=== PATIENT | female | born 1960 | race Asian ===

== ENCOUNTER → 2018-04-13 | Outpatient (CLI) | payer OTHER | LOC: RAD 01:47 | DX: Z12.31 Encounter for screening mammogram for malignant neoplasm of breast (principal) ==

== ENCOUNTER → 2019-04-19 | Outpatient (CLI) | payer BC, OTHER | LOC: RAD 08:39 | DX: Z12.31 Encounter for screening mammogram for malignant neoplasm of breast (principal) ==

== ENCOUNTER → 2019-06-09 | Outpatient (CLI) | payer BC, OTHER | LOC: NUC 06-02 13:25 | DX: M81.0 Age-related osteoporosis without current pathological fracture (principal); N91.2 Amenorrhea, unspecified; Z78.0 Asymptomatic menopausal state ==

== ENCOUNTER → 2020-04-24 | Outpatient (CLI) | payer BC, OTHER | LOC: BC 08:03 → EDSTATUS 15:57 | PROVIDERS: ATTEND Family Medicine | DX: Z12.31 Encounter for screening mammogram for malignant neoplasm of breast (principal) ==

== ENCOUNTER → 2021-04-25 | Outpatient (CLI) | payer BC, OTHER | LOC: BC 08:29 | PROVIDERS: ATTEND Family Medicine | DX: Z12.31 Encounter for screening mammogram for malignant neoplasm of breast (principal) ==